=== PATIENT | female | born 1930 | race Caucasian/White ===

== ENCOUNTER → 2016-10-10 | Outpatient (CLI) | payer OTHER ==
[~2016-10-10] MED LIST: AMLO2.5T PO; ATOR-22 PO; CILO100T PO; CITA10TA4 PO; CLOP1TAB15 PO; CMD25 PO; CMD5 PO; CYM30 PO; LISI40TA PO; METO50TA16 PO; OXYC1TAB3 PO; PLV75 PO; PRIM50TA29 PO
[2016-10-10 12:59] LABS: ALT/SGPT 21 U/L (12-78); BLOOD UREA NITROGEN 16 mg/dl (7-18); BUN/CREATININE RATIO 17.5 (10-20); CARBON DIOXIDE 29 mmol/L (21-32); CHLORIDE 104 mmol/L (98-107); CHOLESTEROL 135 mg/dl (0-200); CREATININE 0.91 mg/dl (0.60-1.20); GLUCOSE 126 mg/dl (70-99); POTASSIUM 4.2 mmol/L (3.5-5.1); SODIUM 138 mmol/L (136-145); TRIGLYCERIDES 88 mg/dl (0-150); VERY LOW DENSITY LIPOPROT CALC 18 mg/dl
[2016-10-10 13:05] LABS: CALCIUM 9.2 mg/dl (8.5-10.1)
[2016-10-10 13:09] LABS: ALB/GLOB RATIO 1.2 (0.9-2); ALKALINE PHOSPHATASE 73 U/L (45-117); AST/SGOT 19 U/L (15-37); CHOLESTEROL/HDL RATIO 2.2; HDL CHOLESTEROL 61 mg/dl; LDL CHOLESTEROL CALCULATED 56 mg/dl
[2016-10-10 13:19] LABS: ESTIMATED AVERAGE GLUCOSE 134 mg/dl; HA1C FLAG Normal (Normal)
== END | disposition home or self-care (01) ==
LOC: C.LABBFT 09:49
PROVIDERS: ATTEND Internal Medicine
DX: Z00.00 Encounter for general adult medical examination without abnormal findings (principal); R19.7 Diarrhea, unspecified; R73.01 Impaired fasting glucose; I48.91 Unspecified atrial fibrillation

== ENCOUNTER → 2017-02-25 | Outpatient (CLI) | payer OTHER ==
[~2017-02-25] MED LIST changes: -CLOP1TAB15 PO; -OXYC1TAB3 PO
[2017-02-25 12:51] LABS: PROTHROMBIN TIME (PATIENT) 33.1 SECONDS (9.0-12.0)
== END | disposition home or self-care (01) ==
LOC: C.LABBFT 11:25
PROVIDERS: ATTEND Internal Medicine
DX: I48.91 Unspecified atrial fibrillation (principal)

== ENCOUNTER → 2017-04-15 | Outpatient (CLI) | payer OTHER ==
[2017-04-15 12:19] LABS: HEMATOCRIT 45.6 % (37-47); MEAN CELL VOLUME 90.7 fL (80-100); MEAN CORPUSCULAR HGB CONC 33.1 g/dl (32-36); MEAN PLATELET VOLUME 10.6 fL (7.4-10.4); PLATELET COUNT 264 K/uL (130-400); RED BLOOD COUNT 5.03 M/uL (4.2-5.4); WHITE BLOOD COUNT 7.85 K/uL (4.8-10.8)
[2017-04-15 12:26] LABS: ALT/SGPT 17 U/L (12-78); AST/SGOT 19 U/L (15-37); BLOOD UREA NITROGEN 14 mg/dl (7-18); BUN/CREATININE RATIO 14.9 (10-20); CALCIUM 8.9 mg/dl (8.5-10.1); CARBON DIOXIDE 26 mmol/L (21-32); CHLORIDE 102 mmol/L (98-107); CHOLESTEROL 150 mg/dl (0-200); CREATININE 0.95 mg/dl (0.60-1.20); GLUCOSE 140 mg/dl (70-99); SODIUM 138 mmol/L (136-145); TRIGLYCERIDES 116 mg/dl (0-150); VERY LOW DENSITY LIPOPROT CALC 23 mg/dl
[2017-04-15 12:29] LABS: ESTIMATED AVERAGE GLUCOSE 134 mg/dl; HA1C FLAG Normal (Normal)
[2017-04-15 12:37] LABS: ALB/GLOB RATIO 1.1 (0.9-2); ALKALINE PHOSPHATASE 75 U/L (45-117); CHOLESTEROL/HDL RATIO 2.4; HDL CHOLESTEROL 63 mg/dl; LDL CHOLESTEROL CALCULATED 64 mg/dl
== END | disposition home or self-care (01) ==
LOC: C.LABBFT 09:45
PROVIDERS: ATTEND Internal Medicine
DX: E78.5 Hyperlipidemia, unspecified (principal); I10 Essential (primary) hypertension; R73.01 Impaired fasting glucose

== ENCOUNTER 2017-05-02 10:57 | Emergency (ER) | payer OTHER ==
[~2017-05-02] VITALS: Ht 160 cm; Wt 69.0 kg
[2017-05-02 11:08] VITALS: TEMP 36.5; Ht 160 cm; Wt 69.0 kg
[2017-05-02] MEDS ORDERED: ONDANSETRON INJ 2 MG/ML 2 ML VIAL IV STA (11:28)
[2017-05-02] MEDS: HYDROmorphone INJ 0.5 MG/0.5 ML SYR IV PRN ×5 (11:41→14:39)
[2017-05-02] MEDS ORDERED: CLOP1TAB15 PO (12:15)
--- NOTE | 2017-05-02 12:37 | DIAGNOSTIC IMAGING REPORT ---
R HUMERUS MIN 2 VIEWS ROUTINE CLINICAL HISTORY: Right arm pain. Trauma. COMPARISON: None. DISCUSSION: The study is markedly limited from a positioning standpoint. There is oblique fracture of the distal humerus which is not well demonstrated on the provided 3 images. Additional imaging is recommended in follow-up. IMPRESSION: Oblique fracture of the distal humerus. Additional views are recommended for further evaluation as the current study is markedly limited from a technical standpoint Electronically signed by: Flip Alexandra M.D. 05/02/2017 12:36 PM Dictated Date/Time: 05/02/2017 12:30 PM
--- NOTE | 2017-05-02 12:41 | DIAGNOSTIC IMAGING REPORT ---
ELBOW 2 VIEWS CLINICAL HISTORY: right elbow pain, fall COMPARISON: None. DISCUSSION: There is an oblique fracture of the distal humeral diaphysis. There is 20 degrees of vertex volar angulation. The distal bone is displaced x 14 mm, and posterior displaced x 16 mm. IMPRESSION: Displaced angulated fracture of the distal humeral diaphysis. No intra-articular extension is visualized on the provided images. Electronically signed by: Flip Alexandra M.D. 05/02/2017 12:40 PM Dictated Date/Time: 05/02/2017 12:38 PM
[2017-05-02 15:22] VITALS: BP 124/76; PULSE 72; O2SAT 98
[2017-05-02] MEDS ORDERED: OXYC1TAB3 PO (15:24)
--- NOTE | 2017-05-02 18:12 | EMERGENCY ROOM VISIT NOTE ---
History Report prepared by Mychal: Reese Simmons Under the Supervision of: Dr. Sergey Real M.D. First contact with patient: 11:21 Chief Complaint: FALL Stated Complaint: FALL -- R ARM PAIN History of Present Illness The patient is a 86 year old female who presents to the Emergency Room with complaints of R forearm pain. Per nursing staff, the patient landed on her right arm after slipping from the bottom step of a staircase and report a forearm deformity. Per patient, the pain is above her R elbow and is not in her wrist. Per nursing staff, patient denies head strike or loss of consciousness and was not given anything by EMS. The patient has a history of hypertension that she manages with medication. Of note, the patient has a history of neck fractures who she follows up with her orthopedic physician, Dr. Pak. Pt denies LOC, headache, visual changes, neck pain, chest pain, breathing difficulties, nausea, vomiting, abdominal pain, back pain, numbness, weakness, open wounds, active bleeding, or other complaints. Review of Systems See HPI for pertinent positives and negatives. A total of ten systems were reviewed and were otherwise negative. Past Medical & Surgical Medical Problems: (1) Atrial Fibrillation (2) Coron Atheroscler Nos Type Vessel, Elem Or Graft (3) Cva (4) Hx-Venous Thrombosis&Embolism (5) Hyperlipidemia Nec/Nos (6) Hypertension Nos (7) Long-Term(Current)Use Of Antiplatelet/Antithrombotic (8) Periph Vascular Dis Nos (9) Skin cancer of face Social History Smoking Status: Never Smoker Marital Status: Current/Historical Medications Scheduled Amlodipine Besylate (Norvasc), 2.5 MG PO QAM Atorvastatin (Lipitor), 20 MG PO QPM Cilostazol (Pletal), 100 MG PO BID Citalopram Hydrobromide (Citalopram Hydrobromide), 10 MG PO QAM Clopidogrel (Plavix), 75 MG PO Q2D Duloxetine HCl (Duloxetine HCl), 30 MG PO QAM Lisinopril (Zestril), 40 MG PO QPM Metoprolol Tartrate (Lopressor) (Lopressor), 50 MG PO BID Primidone (Mysoline), 50 MG PO QAM Warfarin Sod (Coumadin), 2.5 MG PO ,, Warfarin Sod (Coumadin), 5 MG PO MEHDI, OMID, STEFANIE,SAT Scheduled PRN Oxycodone Ir (Roxicodone Ir), 1-2 TAB PO Q4H PRN for Severe Pain Allergies Coded Allergies: Sulfa Antibiotics (Verified Allergy, Severe, HIVES, 09/07/15) Succinylcholine (Verified Allergy, Mild, HER BROTHER HAD PROBLEMS WITH THIS AND WAS TOLD NOT TO TAKE, 09/07/15) Physical Exam Vital Signs Date Time Temp Pulse Resp B/P (MAP) Pulse Ox O2 Delivery O2 Flow Rate FiO2 05/02/17 15:22 72 16 124/76 98 Room Air 05/02/17 13:41 88 16 112/72 94 Room Air 05/02/17 11:43 94 16 150/96 94 Room Air 05/02/17 11:08 36.5 76 16 153/103 98 Room Air 05/02/17 11:04 76 Physical Exam GENERAL: Awake, alert, uncomfortable appearing, [] distress HEAD: Normocephalic, atraumatic. No bruno sign. No raccoon eyes. EYES: Normal conjunctiva. PERRL. EARS: External ears normal. Right TM normal. Left TM normal. NOSE: Atraumatic OROPHARYNX: Lips, tongue, and mucosa unremarkable. No erythema or exudate. NECK: supple No tracheal deviation or JVD. No posterior midline tenderness. No step offs noted. RESPIRATORY: CTA bilaterally CARDIAC: regular rate, normal rhythm. ABDOMEN: Inspection reveals no abnormalities. Soft, non distended. No tenderness to palpation. No hernias. BACK: No midline step offs or tenderness to palpation. Unremarkable. PELVIS: Stable to rock. SKIN: Normal. LYMPH: No adenopathy. MUSCULOSKELETAL: tenderness to proximal humerus on right side. tenderness of right elbow. Right elbow and shoulder range of motion limited secondary to pain. Left upper and lower extremities are atraumatic. NEURO: GCS 15. Normal sensorium. No sensory or motor deficits noted. Medical Decision & Procedures ER Provider Diagnostic Interpretation: X-ray: Per my interpretation, radiologist review. R HUMERUS MIN 2 VIEWS ROUTINE CLINICAL HISTORY: Right arm pain. Trauma. COMPARISON: None. DISCUSSION: The study is markedly limited from a positioning standpoint. There is oblique fracture of the distal humerus which is not well demonstrated on the provided 3 images. Additional imaging is recommended in follow-up. IMPRESSION: Oblique fracture of the distal humerus. Additional views are recommended for further evaluation as the current study is markedly limited from a technical standpoint Electronically signed by: Flip Alexandra M.D. 05/02/2017 12:36 PM Dictated Date/Time: 05/02/2017 12:30 PM ELBOW 2 VIEWS CLINICAL HISTORY: right elbow pain, fall COMPARISON: None. DISCUSSION: There is an oblique fracture of the distal humeral diaphysis. There is 20 degrees of vertex volar angulation. The distal bone is displaced x 14 mm, and posterior displaced x 16 mm. IMPRESSION: Displaced angulated fracture of the distal humeral diaphysis. No intra-articular extension is visualized on the provided images. Electronically signed by: Flip Alexandra M.D. 05/02/2017 12:40 PM Dictated Date/Time: 05/02/2017 12:38 PM Medications Administered Medications (Trade) Dose Ordered Sig/Shahnaz Route Start Time Stop Time Status Last Admin Dose Admin Ondansetron HCl (Zofran Inj) 4 mg NOW STAT IV 05/02/17 11:28 05/02/17 11:30 DC 05/02/17 11:41 4 MG Hydromorphone HCl (Dilaudid Inj) 0.5 mg Q15M PRN IV 05/02/17 11:30 05/02/17 15:49 DC 05/02/17 14:39 0.5 MG Procedure SPLINTING: Indication: Fracture The injured extremity was identified. The patient was prepped and measured for the placement of a coaptation and posterior long-arm orthoglass splint. Splint applied in the standard fashion over a layer of webril and secured using an elastic bandage. Set into a position of function. Normal neurovascular status after placement verified by me. The patient tolerated the procedure well and the care of the splint was discussed with the patient/family. No complications. ED Course 1121: The patient was evaluated in room C3. A complete history and physical exam was performed. 1128: Ordered Zofran Inj 4 mg IV. 1130: Ordered Dilaudid Inj 0.5 mg IV. 1245: I reevaluated the patient and she is resting. I updated the patient on the exam findings at this time and the treatment plan. She is in agreement. We are awaiting call back from Orthopedics. 1251: I spoke to Dr. Mitchell, Orthopedics at this time. He states that the patient should be able to be managed as an outpatient without surgery. He states that he will see the patient on Saturday. 1347: I reevaluated the patient and she had a coaptation splint placed. 1353: I did discuss this with Dr. Mitchell or guarding the cup patient's splint and he also recommended a posterior long-arm and this will be added. 1403: I reevaluated the patient and she is doing well. She will have her splint modified. 1445: Patient was reassessed and was doing well. Tolerating posterior long-arm with coaptation splint. Feels much better. Will follow-up with orthopedics as an outpatient. Medical Decision Prior records reviewed and summarized above. Triage Nursing notes reviewed and agree them. Additional history obtained from family.. The patient's history was concerning for traumatic injury. Differential diagnosis: Etiologies such as fracture, dislocation, neurovascular compromise, compartment syndrome, soft tissue injury, as well as others were entertained. Physical examination: Consistent with an isolated right upper arm injury. Closed. Neurovascular intact. ER treatment provided: IV Zofran IV Dilaudid times multiple doses Splinting On reassessment the patient felt better. Diagnostics interpreted by me: Imaging studies: Xrays as above. Consultation: A consultation was placed with the orthopedist, Dr. Mitchell. The case was discussed and diagnostics were reviewed. He did review the patient's imaging. He felt that this could be managed conservatively and he'll see the patient in the office. He recommended splinting. This was done as above. By the evaluation outlined above emergent etiologies such as head injury, spine injury, open fracture, dislocation, neurovascular compromise, compartment syndrome, infections, as well as others were deemed relatively unlikely. The patient and family were informed about the findings as listed above. All questions were answered and they were pleased with the treatment. Return instructions were outlined and the patient was discharged in stable condition. Prescription management: Oxy IR Referral: The patient was referred to Dr. Mitchell of Orthopedics for follow-up care. Medication Reconcilliation Current Medication List: was personally reviewed by me Consults Time Called: 1230 Consulting Physician: Dr. Mitchell, Orthopedics Returned Call: [phone] Mitchell, Orthopedics at this time. He states that the patient should be able to be managed as an outpatient without surgery. He states that he will see the patient on Saturday. Additional Consults: Time Called: 1351 Consulted Physician: Dr. Mitchell, Orthopedics Returned Call: [phone] Additional Comments: I spoke to Dr. Mtichell, Orthopedics again. He states that a posterior splint should be added to the patient. Impression Primary Impression: Right supracondylar humerus fracture Scribe Attestation The scribe's documentation has been prepared under my direction and personally reviewed by me in its entirety. I confirm that the note above accurately reflects all work, treatment, procedures, and medical decision making performed by me. Departure Information Dispostion Home / Self-Care Prescriptions Oxycodone Ir (Roxicodone Ir) 5 Mg Tab 1-2 TAB PO Q4H Y for Severe Pain, #20 TAB Prov: Sergey Real MD 05/02/17 Referrals Phill Hughes M.D. (PCP) Patient Instructions My [facility] Additional Instructions ORTHOPEDIC INSTRUCTIONS: DO NOT drive, drink alcohol, operate machinery, or perform dangerous activities today. You were given medications in the ER that can affect your ability to safely function or operate a vehicle. Oxycodone (OxyIR) 5mg: Take 1-2 pills every four hours for breakthrough pain. Avoid alcohol, operating machinery or dangerous equipment, working on ladders or roofs, DRIVING, or situations where being under the influence may be dangerous. It is recommended to use an [id number] stool softener such as Colace, 100mg twice daily while taking this medication to avoid constipation. Acetaminophen(Tylenol) may be used for fever or pain. Use 1000mg every six hours as needed. Avoid using more than 4000mg in a 24 hour period. Ice compresses for 20 minutes at a time four times daily for 2-3 days. Use the sling as instructed. Rest and elevate your injury. Do not get the splint wet. If your splint feels excessively tight, you have worsening pain, develop numbness or tingling, or your digits appear blue, loosen the rebecca wrap. Then reapply the rebecca wrap gently without removing the splint. If your symptoms are not quickly relieved return to the ER for re- evaluation. Return to the ER immediately for any numbness, tingling, severe pain, extreme swelling in the extremity or as needed. Call [facility], [phone], tomorrow to arrange follow up for your injury on Saturday.
== END 2017-05-02 15:38 | disposition home or self-care (01) ==
LOC: C.EDC 10:57 → EDBD 10:57 → C.EDC 15:38
DX: S42.411A Displaced simple supracondylar fracture without intercondylar fracture of right humerus, initial encounter for closed fracture (principal); W10.9XXA Fall (on) (from) unspecified stairs and steps, initial encounter; W22.8XXA Striking against or struck by other objects, initial encounter; I10 Essential (primary) hypertension; I48.91 Unspecified atrial fibrillation; E78.5 Hyperlipidemia, unspecified; I73.9 Peripheral vascular disease, unspecified; I25.10 Atherosclerotic heart disease of native coronary artery without angina pectoris; Z86.73 Personal history of transient ischemic attack (TIA), and cerebral infarction without residual deficits; Z86.718 Personal history of other venous thrombosis and embolism; Z85.828 Personal history of other malignant neoplasm of skin; Z79.01 Long term (current) use of anticoagulants; Z79.02 Long term (current) use of antithrombotics/antiplatelets; Z79.899 Other long term (current) drug therapy

== ENCOUNTER → 2017-07-08 | Outpatient (CLI) | payer OTHER ==
[~2017-07-08] MED LIST changes: +CLOP1TAB15 PO; +OXYC1TAB3 PO; -PLV75 PO
[2017-07-08 12:38] LABS: HEMATOCRIT 43.9 % (37-47); HEMOGLOBIN 14.5 g/dL (12.0-16.0); MEAN CELL VOLUME 98.9 fL (80-100); MEAN CORPUSCULAR HEMOGLOBIN 32.7 pg (25-34); MEAN PLATELET VOLUME 10.7 fL (7.4-10.4); PLATELET COUNT 263 K/uL (130-400); RED CELL DISTRIBUTION WIDTH CV 14.9 % (11.5-14.5); RED CELL DISTRIBUTION WIDTH SD 54.1 fL (36.4-46.3); WHITE BLOOD COUNT 7.86 K/uL (4.8-10.8)
[2017-07-08 12:56] LABS: HEMOGLOBIN A1C 5.9 % (4.5-5.6)
[2017-07-08 13:23] LABS: ALBUMIN 3.6 gm/dl (3.4-5.0); ALT/SGPT 19 U/L (12-78); BLOOD UREA NITROGEN 14 mg/dl (7-18); CALCIUM 9.1 mg/dl (8.5-10.1); CARBON DIOXIDE 27 mmol/L (21-32); CREATININE 0.83 mg/dl (0.60-1.20); GLUCOSE 133 mg/dl (70-99); POTASSIUM 4.3 mmol/L (3.5-5.1); SODIUM 137 mmol/L (136-145)
[2017-07-08 13:26] LABS: ALKALINE PHOSPHATASE 102 U/L (45-117); AST/SGOT 23 U/L (15-37)
== END | disposition home or self-care (01) ==
LOC: C.LABBFT 10:43
PROVIDERS: ATTEND Nurse Practitioner
DX: R73.01 Impaired fasting glucose (principal); I10 Essential (primary) hypertension

== ENCOUNTER → 2017-10-29 | Outpatient (CLI) | payer OTHER | END | disposition home or self-care (01) | LOC: C.LABBFT 09:34 | PROVIDERS: ATTEND Nurse Practitioner | DX: E78.5 Hyperlipidemia, unspecified (principal) ==